=== PATIENT | female | born 1975 | race Caucasian/White ===

== ENCOUNTER 2019-02-02 11:42 | Outpatient (RCR) | payer OTHER, SELFPAY ==
--- NOTE | ~2019-02-02 | XR_ITS ---
EXAMINATION: XR ankle LT 2V, XR foot LT 2V, XR foot RT 2V, XR ankle RT 2V EXAM DATE: 02/02/2019 12:30 INDICATION: Arthralgia, bilateral foot and ankle pain. TECHNIQUE: Right foot frontal and lateral projections, right ankle frontal and lateral projections, left foot frontal and lateral projections, left ankle frontal and lateral projections. Comparison is made to prior examination from 03/09/2018. FINDINGS: Ankle mortises are intact bilaterally and no evidence of talar osteochondral defects. There are no mini ny erosions identified. No periosteal reaction or band of sclerosis to suggest subacute stress fractu re. There are no acute fractures or dislocations identified. There is no subcutaneous gas. The soft tissue is unremarkable. There are no radiopaque foreign bodies. Joint space is unremarkable. IMPRESSION: 1. Unremarkable feet, ankles exams. Reviewed, dictated and finalized at location A. [employer] IMPRESSION: 1. Unremarkable feet, ankles exams. IMPRESSION: 1. Unremarkable feet, ankles exams. IMPRESSION: 1. Unremarkable feet, ankles exams.
--- NOTE | ~2019-02-02 | XR_ITS ---
EXAMINATION: XR cervical spine 4-5V DATE: 02/02/2019 12:30 INDICATION: Psoriasis. TECHNIQUE: 5 views of cervical spine were obtained. COMPARISON: None. FINDINGS: There is 9 degrees levocurvature of cervicothoracic spine. Vertebral body heights and inter vertebral disc heights are normal. There is multilevel facet joint osteoarthritis, severe at C7-T1 an d on the left at C3-C4. IMPRESSION: 1. Mild cervical spondylosis. Reviewed, dictated and finalized at location A. [facility]
[2019-02-02 12:30] LABS: Hematocrit 41.3 % (37.0-47.0); Hemoglobin 13.6 g/dL (12.0-15.0); Mean Corpuscular HGB Conc 32.9 g/dl (32-36); Mean Corpuscular Hemoglobin 32.4 pg (26-34); Mean Corpuscular Volume 98.3 fl (80-100); Mean Platelet Volume 9.6 fl (7.4-10.4); Platelet Count Result 245 k/mm3 (150-375); Red Cell Distribution Width 12.5 % (11.5-14.5); White Blood Count 9.3 K/mm3 (4.5-10.0)
[2019-02-02 12:32] LABS: Add Urine Microscopic? NO; Appearance Urine Clear (Clear); Bilirubin Urine Negative (Negative); Blood Urine Negative (Negative); Color Urine Yellow (Yellow); Glucose Urine UA Negative (Negative); Ketones Urine Negative (Negative); Leukocyte Esterase Ur Negative LEU/UL (NEGATIVE); Nitrate Urine Negative (Negative); Protein Urine Negative (Negative); Specific Grav Ur 1.013 (1.001-1.035); Urobilinogen Urine Negative mg/dL (<2.0)
[2019-02-02 12:47] LABS: Alanine Aminotransferase 23 U/L (4-35); Albumin Level 4.4 g/dL (3.5-5.1); Alkaline Phosphatase 55 U/L (38-126); Aspartate Amino Transferase 22 U/L (14-36); Bilirubin,Total 0.5 mg/dL (0.2-1.3); Blood Urea Nitrogen 11 mg/dL (7-17); CRP < 0.5 mg/dL (<1.0); Calcium 9.5 mg/dL (8.4-10.2); Carbon Dioxide 27 mmol/L (22-30); Chloride 102 mmol/L (98-107); Estimated Glomerular Filt Rate > 60; Glucose 101 mg/dL (65-105); Sodium 140 mmol/L (137-145)
[2019-02-02 13:17] LABS: Erythrocyte Sedimentation Rate 18 mm/hr (0-20)
== END 2019-05-03 23:59 | disposition home or self-care (01) ==
LOC: ANHLAB 11:42
DX: Z51.81 Encounter for therapeutic drug level monitoring (principal); L40.9 Psoriasis, unspecified; Z79.899 Other long term (current) drug therapy; M25.571 Pain in right ankle and joints of right foot; M25.572 Pain in left ankle and joints of left foot
CPT/HCPCS: 36415; 72050; 73600; 73620; 80053; 81003; 85027; 85652; 86140

== ENCOUNTER 2019-04-03 15:40 | Outpatient (RCR) | payer OTHER, SELFPAY ==
[2019-04-03 16:27] LABS: Basophils Absolute Auto 0.1 K/mm3 (0.0-0.1); Basophils Percent Auto 1.1 % (0.2-1.2); Eosinophils Absolute Auto 0.1 K/mm3 (0-0.3); Eosinophils Percent Auto 0.6 % (0-4.4); Hematocrit 41.1 % (37.0-47.0); Hemoglobin 13.8 g/dL (12.0-15.0); Immature Granulocyte Absolute 0.03 K/mm3 (0.00-0.031); Immature Granulocyte Percent A 0.4 % (0-0.5); Lymphocytes Absolute Auto 3.28 K/mm3 (0.9-3.2); Lymphocytes Percent Auto 41.9 % (18.3-44.2); Mean Corpuscular HGB Conc 33.6 g/dl (32-36); Mean Corpuscular Hemoglobin 31.9 pg (26-34); Mean Corpuscular Volume 95.1 fl (80-100); Mean Platelet Volume 9.5 fl (7.4-10.4); Monocytes Absolute Auto 0.4 K/mm3 (0.1-0.6); Monocytes Percent Auto 5.2 % (2.6-8.5); Neutrophils Percent Auto 50.8 % (45.5-73.1); Platelet Count Result 271 k/mm3 (150-375); Red Blood Count 4.32 M/mm3 (4.2-5.4); Red Cell Distribution Width 12.7 % (11.5-14.5); White Blood Count 7.8 K/mm3 (4.5-10.0)
[2019-04-03 16:30] LABS: Add Urine Microscopic? NO; Appearance Urine Clear (Clear); Bilirubin Urine Negative (Negative); Blood Urine Negative (Negative); Color Urine Yellow (Yellow); Glucose Urine UA Negative (Negative); Ketones Urine Negative (Negative); Leukocyte Esterase Ur Negative LEU/UL (Negative); Nitrate Urine Negative (Negative); Protein Urine Negative (Negative); Urobilinogen Urine Negative mg/dL (<2.0)
[2019-04-03 16:44] LABS: Alanine Aminotransferase 15 U/L (4-35); Albumin Level 4.6 g/dL (3.5-5.1); Alkaline Phosphatase 63 U/L (38-126); Aspartate Amino Transferase 18 U/L (14-36); Bilirubin,Total 0.5 mg/dL (0.2-1.3); Blood Urea Nitrogen 14 mg/dL (7-17); CRP < 0.5 mg/dL (<1.0); Calcium 9.5 mg/dL (8.4-10.2); Carbon Dioxide 26 mmol/L (22-30); Chloride 99 mmol/L (98-107); Estimated Glomerular Filt Rate > 60; Glucose 95 mg/dL (65-105); Potassium 3.9 mmol/L (3.4-5.0); Sodium 135 mmol/L (137-145)
[2019-04-03 16:51] LABS: Erythrocyte Sedimentation Rate 21 mm/hr (0-20)
== END 2019-07-02 23:59 | disposition home or self-care (01) ==
LOC: ANHLAB 15:40
DX: Z51.81 Encounter for therapeutic drug level monitoring (principal); L40.9 Psoriasis, unspecified; Z79.899 Other long term (current) drug therapy
CPT/HCPCS: 36415; 80053; 81003; 85025; 85652; 86140

== ENCOUNTER 2020-10-15 14:44 | Outpatient (CLI) | payer OTHER, SELFPAY ==
[2020-10-15 15:24] LABS: Basophils Absolute Auto 0.1 K/mm3 (0.0-0.1); Basophils Percent Auto 0.9 % (0.2-1.2); Eosinophils Absolute Auto 0.1 K/mm3 (0-0.3); Eosinophils Percent Auto 0.6 % (0-4.4); Hematocrit 39.8 % (37.0-47.0); Hemoglobin 13.3 g/dL (12.0-15.0); Immature Granulocyte Absolute 0.02 K/mm3 (0.00-0.031); Immature Granulocyte Percent A 0.2 % (0-0.5); Lymphocytes Absolute Auto 3.11 K/mm3 (0.9-3.2); Lymphocytes Percent Auto 38.4 % (18.3-44.2); Mean Corpuscular HGB Conc 33.4 g/dl (32-36); Mean Corpuscular Hemoglobin 32.3 pg (26-34); Mean Corpuscular Volume 96.6 fl (80-100); Monocytes Absolute Auto 0.3 K/mm3 (0.1-0.6); Monocytes Percent Auto 4.2 % (2.6-8.5); Neutrophils Absolute Auto 4.5 K/mm3 (1.3-6.7); Neutrophils Percent Auto 55.7 % (45.5-73.1); Platelet Count Result 266 k/mm3 (150-375); Red Blood Count 4.12 M/mm3 (4.2-5.4); Red Cell Distribution Width 12.7 % (11.5-14.5); White Blood Count 8.1 K/mm3 (4.5-10.0)
[2020-10-15 15:39] LABS: Alanine Aminotransferase 27 U/L (4-35); Albumin Level 4.3 g/dL (3.5-5.1); Alkaline Phosphatase 71 U/L (38-126); Anion Gap 6 mmol/L (8-16); Aspartate Amino Transferase 28 U/L (14-36); Bilirubin,Total 0.3 mg/dL (0.2-1.3); Blood Urea Nitrogen 8 mg/dL (7-17); CRP 1.6 mg/dL (<1.0); Calcium 9.1 mg/dL (8.4-10.2); Carbon Dioxide 25 mmol/L (22-30); Chloride 106 mmol/L (98-107); Estimated Glomerular Filt Rate > 60; Glucose 85 mg/dL (65-110); Potassium 3.9 mmol/L (3.4-5.0); Sodium 137 mmol/L (137-145)
[2020-10-15 16:38] LABS: Erythrocyte Sedimentation Rate 27 mm/hr (0-20)
[2020-10-20 12:36] LABS: CRP, High Sensitivity >10.0 mg/L (***)
== END 2020-10-15 14:45 | disposition home or self-care (01) ==
DX: L40.50 Arthropathic psoriasis, unspecified (principal)
CPT/HCPCS: 36415; 80053; 85025; 85652; 86140; 86141